=== PATIENT | female | born 1980 | race Caucasian/White ===

== ENCOUNTER 2019-02-04 08:24 | Emergency (ER) | payer BC, OTHER ==
[2019-02-04 08:40] VITALS: BP 105/64
--- NOTE | 2019-02-04 08:49 | UC ---
Lower Extremity/Ankle HPI - HPI Summary HPI Summary: 38-year-old woman comes in with a chief complaint of right foot pain. Patient was at work and ended up having a cabinet she was moving drop on to the top of her right foot. Pain upon initial injury. Hurts to weight-bear. With the patient but. The pain decreases. No skin break. - History of Current Complaint Chief Complaint: UCLowerExtremity Stated Complaint: RIGHT FOOT INJURY (WC) Time Seen by Provider: 02/04/19 08:38 Hx Last Menstrual Period: 12/02/15 Pain Intensity: 8 - Allergies/Home Medications Allergies/Adverse Reactions: Allergies Allergy/AdvReac Type Severity Reaction Status Date / Time No Known Allergies Allergy Verified 02/04/19 08:34 Home Medications: Home Medications NK [No Home Medications Reported] 02/04/19 [History Confirmed 02/04/19] PMH/Surg Hx/FS Hx/Imm Hx Previously Healthy: Yes - Surgical History Surgical History: Yes Surgery Procedure, Year, and Place: and Tubal Ligation, 2007, [place] - Family History Known Family History: Negative: Cardiac Disease, Hypertension, Diabetes - Social History Alcohol Use: None Substance Use Type: None Smoking Status (MU): Heavy Every Day Tobacco Smoker Type: Cigarettes Amount Used/How Often: 1/2 PPD Length of Time of Smoking/Using Tobacco: Since Age 13 Have You Smoked in the Last Year: - last cigarette 2 weeks Household Exposure Type: Cigarettes Review of Systems All Other Systems Reviewed And Are Negative: Yes Constitutional: Positive: Negative Skin: Positive: Other - SEE HPI Eyes: Positive: Negative ENT: Positive: Negative Respiratory: Positive: Negative Cardiovascular: Positive: Negative Gastrointestinal: Positive: Negative Motor: Positive: Negative Neurovascular: Positive: Negative Musculoskeletal: Positive: Other: - SEE HPI Neurological: Positive: Negative Psychological: Positive: Negative Is Patient Immunocompromised?: No Physical Exam Triage Information Reviewed: Yes Appearance: Well-Appearing, Well-Nourished, Pain Distress - MILD WITH RT FOOT EXAM Vital Signs: Initial Vital Signs Temp 97.8 F 02/04/19 08:33 Pulse 68 02/04/19 08:33 Resp 16 02/04/19 08:33 BP 105/64 02/04/19 08:33 Pulse Ox 100 02/04/19 08:33 Vital Signs Reviewed: Yes Eye Exam: Normal Eyes: Positive: Conjunctiva Clear Neck: Positive: Supple Respiratory: Positive: No respiratory distress Musculoskeletal: Positive: Other: - Right wrist tender to palpation on the dorsum over the MCPs. Rest the foot is nontender to palpation does have an ankle have full range of motion. Strength 5 out of 5 Achilles tendon is intact and nontender. Normal capillary refill. Normal dorsalis pedis pulse. Normal sensation. Neurological: Positive: Alert Psychological: Positive: Age Appropriate Behavior Skin: Positive: Other - There is an area of ecchymosis on the dorsum of the right foot Lower Extremity Course/Dx - Course Course Of Treatment: Patient Name: RADHA CHEUNG Medical Record#: [id number] Ordering Physician: Yong Bansal MD Acct.#: [id number] : 1980 Age: 38 Sex: F Location: [facility] Exam Date: 02/04/19839 ADM Status: REG ER Order Information: FOOT RIGHT 3+ VWS Accession Number: [id number] CPT: 90196 INDICATION: Right foot injury. TECHNIQUE: 3 views of the right foot were obtained. FINDINGS: The bones are in normal alignment. No fracture is seen. Joint spaces appear maintained. IMPRESSION: NO EVIDENCE FOR FRACTURE. <Electronically signed by Gabino Groves MD in OV> 02/04/19 09 I discussed the x-rays with the patient. Nursing placed a postop shoe here in clinic patient neurovascular intact after placement of the postop shoe. Plan will be ice anti-inflammatories. Weightbearing as tolerated. Follow-up with occupational medicine. I wrote for the patient to be out of work until cleared by medical provider. - Differential Dx/Diagnosis Provider Diagnosis: Contusion of right foot Discharge - Sign-Out/Discharge Documenting (check all that apply): Patient Departure All imaging exams completed and their final reports reviewed: Yes - Discharge Plan Condition: Stable Disposition: HOME Patient Education Materials: Foot Contusion (ED) Referrals: Kourtney Anderson PA [Primary Care Provider] - John Rivera MD [Medical Doctor] - Julio Naranjo MD [Medical Doctor] - [facility] [Provider Group] Additional Instructions: FOLLOW UP WITH OCCUPATIONAL MEDICINE, DR RIVERA, OR ORTHOPEDICS OR SPORTS MEDICINE. GET REEVALUATED SOONER IF WORSE OR ANY QUESTIONS OR CONCERNS. - Billing Disposition and Condition Condition: STABLE Disposition: Home
== END 2019-02-04 09:46 | disposition home or self-care (01) ==
LOC: UCCORT 08:24
DX: S90.31XA Contusion of right foot, initial encounter (principal); W20.8XXA Other cause of strike by thrown, projected or falling object, initial encounter; Y93.89 Activity, other specified; Y92.89 Other specified places as the place of occurrence of the external cause; Y99.0 Civilian activity done for income or pay; F17.210 Nicotine dependence, cigarettes, uncomplicated
CPT/HCPCS: 99203; G0463